=== PATIENT | female | born 1950 | race Caucasian/White ===

== ENCOUNTER 2018-07-01 10:26 | Emergency (ER) | payer OTHER ==
[~2018-07-01] VITALS: Ht 154.9 cm; Wt 64.9 kg
[~2018-07-01 10:26] MED LIST: COLACE100 MG PO; FERROUS SULFAT325 M2 PO; LAC PO; LAC30L PO; LEVAQUIN750 MG PO; MOTRIN800 MG PO; NAPROXEN SODIU550 MG PO; PAX20 PO; PRILOSEC20 MG PO
[2018-07-01 10:29] VITALS: BP 156/60; Ht 154.9 cm; Wt 64.9 kg
== END 2018-07-01 11:21 | disposition home or self-care (01) ==
LOC: ED 10:26
DX: L89.899 Pressure ulcer of other site, unspecified stage (principal); M06.9 Rheumatoid arthritis, unspecified; M10.9 Gout, unspecified